=== PATIENT | male | born 1965 | race Caucasian/White ===

== ENCOUNTER 2018-07-11 13:42 | Emergency (ER) | payer OTHER ==
[2018-07-11] MEDS ORDERED: NS 1,000 ML IV ONE (14:00)
--- NOTE | 2018-07-11 14:00 | EDPHY ---
H & P Stated Complaint: bs was 441 at health screening this am. hasnt taken metformin x 5 days Time Seen by Provider: 07/11/18 13:59 HPI/ROS: CHIEF COMPLAINT: Elevated blood sugar HISTORY OF PRESENT ILLNESS: The patient has a history of type 2 diabetes and has been off his metformin for the past 5-6 days. He typically takes 1000 mg twice a day. He was having a pre-employment physical today and was noted to have a blood sugar of 400 which prompted his referral to the emergency department. The patient denies any acute abdominal pain, vomiting, fever, cough , congestion, diarrhea or other acute medical complaints. The patient reports he is supposed to be on Synthroid and has not taking a 60 mcg dose also in approximately a week. The patient denies any chest pain or shortness of breath. He denies additional acute complaints. REVIEW OF SYSTEMS: A comprehensive 10 point review of systems is otherwise negative aside from elements mentioned in the history of present illness. Source: Patient Exam Limitations: No limitations - Personal History Current Tetanus Diphtheria and Acellular Pertussis (TDAP): Yes - Medical/Surgical History Hx Asthma: No Hx Chronic Respiratory Disease: No Hx Diabetes: Yes Hx Cardiac Disease: No Hx Renal Disease: No Hx Cirrhosis: No Hx Alcoholism: No Hx HIV/AIDS: No Hx Splenectomy or Spleen Trauma: No Other PMH: diabetes, hypothyroid - Social History Smoking Status: Former smoker - Physical Exam Exam: General Appearance: Alert, no distress Eyes: Pupils equal and round no pallor or injection ENT, Mouth: Mucous membranes moist Respiratory: There are no retractions, lungs are clear to auscultation Cardiovascular: Regular rate and rhythm Gastrointestinal: Abdomen is soft and nontender, no masses, bowel sounds normal Neurological: A&O, normal motor function, normal sensory exam, normal cranial nerves Skin: Warm and dry, no rashes Musculoskeletal: Neck is supple nontender Extremities: symmetrical, full range of motion Psychiatric: Patient is oriented X 3, there is no agitation Constitutional: Initial Vital Signs Temperature (C) 37.1 C 07/11/18 13:49 Heart Rate 109 H 07/11/18 13:49 Respiratory Rate 18 07/11/18 13:49 Blood Pressure 171/100 H 07/11/18 13:49 O2 Sat (%) 91 L 07/11/18 13:49 O2 Delivery Mode Room Air Allergies/Adverse Reactions: ketorolac [From Toradol] Allergy (Verified 07/11/18 13:48) meperidine [From Demerol] Allergy (Verified 07/11/18 13:48) Home Medications: Medication Instructions Recorded Metformin HCl [Metformin 1000 mg] 1,000 mg PO BID #60 tablet 07/11/18 Thyroid [[place] Thyroid 60 MG (*)] 60 mg PO DAILY #30 tab 07/11/18 Medical Decision Making ED Course/Re-evaluation: Patient presents to the ED with asymptomatic hyperglycemia in the setting of metformin noncompliance. The patient has a normal venous pH in the emergency department. His blood glucose 400. Patient has no anion gap. He has no acute complaints. The patient is in [place] for the next 6 weeks. He has been referred to our on-call primary care provider who would be happy to see him in follow-up. I have stressed to him the importance of a follow-up visit with a primary care provider for hemoglobin A1c testing. The patient is discharged home with customary aftercare instructions and return precautions. Differential Diagnosis: Differential diagnosis considered includes hyperglycemia, diabetic ketoacidosis , dehydration, metabolic abnormality, hypothyroidism - Data Points Laboratory Results: Laboratory Results 07/11/18 14:00 07/11/18 14:00 07/11/18 07/11/18 07/11/18 14:00 14:00 14:00 WBC RBC Hgb Hct MCV MCH MCHC RDW Plt Count MPV Neut % (Auto) Lymph % (Auto) [place] % (Auto) Eos % (Auto) Baso % (Auto) Nucleat RBC Rel Count Absolute Neuts (auto) Absolute Lymphs (auto) Absolute Monos (auto) Absolute Eos (auto) Absolute Basos (auto) Absolute Nucleated RBC Immature Gran % Immature Gran # VBG pH 7.42 (7.31-7.42) Sodium 131 mEq/L L mEq/L (135-145) Potassium 4.4 mEq/L mEq/L (3.5-5.2) Chloride 98 mEq/L mEq/L (97-110) Carbon Dioxide 20 mEq/l L mEq/l (22-31) Anion Gap 13 mEq/L mEq/L (6-14) BUN 13 mg/dL mg/dL (7-23) Creatinine 0.7 mg/dL mg/dL (0.7-1.3) Estimated GFR > 60 Glucose 441 mg/dL H mg/dL (70-100) POC Glucose 430 mg/dL H mg/dL (70-100) Calcium 9.1 mg/dL mg/dL (8.5-10.4) 07/11/18 14:00 WBC 11.08 10^3/uL H 10^3/uL (3.80-9.50) RBC 4.82 10^6/uL 10^6/uL (4.40-6.38) Hgb 14.4 g/dL g/dL (13.7-17.5) Hct 42.4 % % (40.0-51.0) MCV 88.0 fL fL (81.5-99.8) MCH 29.9 pg pg (27.9-34.1) MCHC 34.0 g/dL g/dL (32.4-36.7) RDW 12.0 % % (11.5-15.2) Plt Count 311 10^3/uL 10^3/uL (150-400) MPV 9.4 fL fL (8.7-11.7) Neut % (Auto) 66.3 % % (39.3-74.2) Lymph % (Auto) 19.4 % % (15.0-45.0) [place] % (Auto) 9.6 % % (4.5-13.0) Eos % (Auto) 3.6 % % (0.6-7.6) Baso % (Auto) 0.6 % % (0.3-1.7) Nucleat RBC Rel Count 0.0 % % (0.0-0.2) Absolute Neuts (auto) 7.34 10^3/uL H 10^3/uL (1.70-6.50) Absolute Lymphs (auto) 2.15 10^3/uL 10^3/uL (1.00-3.00) Absolute Monos (auto) 1.06 10^3/uL H 10^3/uL (0.30-0.80) Absolute Eos (auto) 0.40 10^3/uL 10^3/uL (0.03-0.40) Absolute Basos (auto) 0.07 10^3/uL 10^3/uL (0.02-0.10) Absolute Nucleated RBC 0.00 10^3/uL 10^3/uL (0-0.01) Immature Gran % 0.5 % % (0.0-1.1) Immature Gran # 0.06 10^3/uL 10^3/uL (0.00-0.10) VBG pH Sodium Potassium Chloride Carbon Dioxide Anion Gap BUN Creatinine Estimated GFR Glucose POC Glucose Calcium Medications Given: Discontinued Medications Sodium Chloride (Ns) 1,000 mls @ 0 mls/hr IV EDNOW ONE; Wide Open PRN Reason: Protocol Stop: 07/11/18 14:01 Last Admin: 07/11/18 14:21 Dose: 1,000 mls Point of Care Test Results: Chemistry 07/11/18 14:00 POC Glucose 430 mg/dL H mg/dL (70-100) Departure - Departure Disposition: Home, Routine, Self-Care Clinical Impression: Hyperglycemia due to type 2 diabetes mellitus Condition: Good Instructions: Diabetes and Exercise (ED) Additional Instructions: 1. Please take your diabetic medication and hypothyroid medications as prescribed. 2. Return to the ED for increasing pain, lightheadedness, vomiting, markedly elevated blood sugars or other concerns. 3. Please schedule a follow-up appointment with your primary care provider. You have also been given the number of a local clinic who would be happy to see you in follow-up. You should have your blood sugar rechecked and be evaluated by primary care provider in the next several weeks. Referrals: Chelsea Mathew MD [Medical Doctor] - As per Instructions Prescriptions: Metformin HCl [Metformin 1000 mg] 1,000 mg PO BID #60 tablet Thyroid [[place] Thyroid 60 MG (*)] 60 mg PO DAILY #30 tab
[2018-07-11 14:16] LABS: PLATELET COUNT 311 10^3/uL (150-400)
[2018-07-11 15:21] VITALS: BP 162/100
== END 2018-07-11 15:10 | disposition home or self-care (01) ==
DX: E11.65 Type 2 diabetes mellitus with hyperglycemia (principal); E86.9 Volume depletion, unspecified; F17.200 Nicotine dependence, unspecified, uncomplicated